=== PATIENT | female | born 1955 | race African-American/Black ===

== ENCOUNTER 2017-11-28 08:03 | Inpatient (IN) | payer MEDICARE, MEDICAID ==
[~2017-11-28] VITALS: Ht 152.4 cm; Wt 112.3 kg
[~2017-11-28 08:03] MED LIST: AMIT25TA9 PO; CITA40TA11; CITA40TA11 PO; CODE118S2 PO; COR3 PO; DIGO125T82; GABA-529; MONT10TA24 PO; POTA25PA2; PRED10TA; SIMV20TA6 PO; WARF2TAB57
[2017-11-28] MEDS ORDERED: IPRATROPIUM/ALBUTEROL 0.5-3(2.5)MG/3ML NEB HHN ONE ×2 (08:30→11:15)
[2017-11-28] MEDS ORDERED: METHYLPREDNISOLONE SOD SUCC 125 MG/2 ML VIAL IV ONE (08:30)
[2017-11-28 08:53] LABS: EOSINOPHILS % 6.6 % (0.0-5.0); HEMATOCRIT. 40.1 % (36.0-48.0); HEMOGLOBIN. 13.2 g/dL (12.0-16.0); LYMPHOCYTES % 44.6 % (20.0-50.0); MEAN CORPUSCULAR HEMOGLOBIN 29.3 pg (28.0-32.0); MEAN CORPUSCULAR VOLUME 88.9 fL (81.0-99.0); MEAN PLATELET VOLUME 9.1 fl (7.4-10.4); MONOCYTES % 8.2 % (2.0-8.0); NEUTROPHILS % 39.6 % (40.0-76.0); PLATELET 182 x1000/uL (130-400); RED BLOOD CELL COUNT 4.52 mill/uL (4.2-5.4)
[2017-11-28 09:02] LABS: CHLORIDE 109 mEq/L (98-107)
[2017-11-28 09:21] LABS: INR 1.7; PROTHROMBIN TIME 18.2 sec (9.4-11.6)
[2017-11-28 09:28] LABS: DIGOXIN 0.5 ng/mL (0.9-2.0)
[2017-11-28] MEDS ORDERED: MORPHINE SULFATE 4 MG/ML CPJ (NOT FOR IM USE) IV ONE (09:30)
[2017-11-28] MEDS ORDERED: FUROSEMIDE 40MG/4ML VIAL IVP ONE (11:15)
[2017-11-28] MEDS ORDERED: DIGOXIN 500MCG/2ML AMP IV NR (12:25)
[2017-11-28 15:38] VITALS: BP 124/50
[2017-11-28] MEDS ORDERED: HYDROCODONE/ACETAMINOPHEN 10/325MG TABLET PO PRN ×2 (15:45→18:15)
[2017-11-28] MEDS ORDERED: IPRATROPIUM/ALBUTEROL 0.5-3(2.5)MG/3ML NEB HHN PRN (15:45)
[2017-11-28 16:00] VITALS: BP 124/50
[2017-11-28] MEDS ORDERED: CLONIDINE 0.2MG TABLET PO PRN (16:00)
[2017-11-28] MEDS ORDERED: CLONIDINE 0.1MG TABLET PO PRN (16:00)
[2017-11-28] MEDS ORDERED: MONTELUKAST SODIUM 10MG TABLET PO SCH ×2 (17:00→18:15)
[2017-11-28] MEDS: FUROSEMIDE 40MG/4ML VIAL IVP SCH (18:05)
[2017-11-28] MEDS: LOSARTAN POTASSIUM 25 MG TABLET PO SCH (18:06)
[2017-11-28] MEDS ORDERED: ACETAMINOPHEN 325MG TABLET PO PRN (18:15)
[2017-11-28] MEDS ORDERED: ACETAMINOPHEN 650MG SUPP PR PRN (18:15)
[2017-11-28] MEDS ORDERED: ACETAMINOPHEN 650MG/20.3ML UDC PO PRN (18:15)
[2017-11-28] MEDS ORDERED: NITROGLYCERIN 0.4MG TABLET SL SL PRN (18:15)
[2017-11-28] MEDS ORDERED: ONDANSETRON HCL 4MG/2ML VIAL IV PRN (18:15)
[2017-11-28] MEDS ORDERED: HYDROCODONE/ACETAMINOPHEN 5/325MG TABLET PO PRN (18:15)
[2017-11-28] MEDS: PANTOPRAZOLE 40MG DR TABLET PO SCH (18:25)
[2017-11-28] MEDS: GABAPENTIN 300MG CAPSULE PO SCH (18:25)
[2017-11-28] MEDS ORDERED: BENZONATATE 100MG CAPSULE PO PRN (18:30)
[2017-11-28] MEDS: NICOTINE 7MG PATCH TD SCH (19:00)
[2017-11-28] MEDS: AMITRIPTYLINE 25MG TABLET PO SCH (20:30)
[2017-11-28 20:33] VITALS: BP 110/54
[2017-11-28] MEDS: BUDESONIDE 0.5MG/2ML NEB HHN SCH (21:41)
[2017-11-28] MEDS: IPRATROPIUM/ALBUTEROL 0.5-3(2.5)MG/3ML NEB HHN SCH (21:41)
[2017-11-29] VITALS (8 sets, daily range): BP systolic 96–120; BP diastolic 39–60
[2017-11-29] MEDS: MORPHINE SULFATE 4 MG/ML CPJ (NOT FOR IM USE) IV PRN ×4 (00:52→22:42)
[2017-11-29] MEDS: IPRATROPIUM/ALBUTEROL 0.5-3(2.5)MG/3ML NEB HHN SCH ×3 (01:00→20:51)
[2017-11-29] MEDS: FUROSEMIDE 40MG/4ML VIAL IVP SCH ×2 (06:15→18:19)
[2017-11-29 06:23] LABS: D-DIMER < 0.19 mg/L FEU (<0.50); INR 1.8; PROTHROMBIN TIME 18.4 sec (9.4-11.6)
[2017-11-29 06:33] LABS: BASOPHILS % 0.4 % (0.0-2.0); EOSINOPHILS % 0.2 % (0.0-5.0); HEMATOCRIT. 41.7 % (36.0-48.0); HEMOGLOBIN. 13.8 g/dL (12.0-16.0); LYMPHOCYTES % 19.2 % (20.0-50.0); MEAN CORPUSCULAR HEMOGLOBIN 29.3 pg (28.0-32.0); MEAN CORPUSCULAR VOLUME 88.6 fL (81.0-99.0); MONOCYTES % 8.9 % (2.0-8.0); NEUTROPHILS % 71.3 % (40.0-76.0); PLATELET 198 x1000/uL (130-400); RED BLOOD CELL COUNT 4.71 mill/uL (4.2-5.4); RED CELL DISTRIBUTION WIDTH 13.9 % (11.6-14.6)
[2017-11-29 06:46] LABS: CLARITY URINE CLEAR (CLEAR); COLOR URINE YELLOW (YELLOW); KETONES URINE NEGATIVE (NEGATIVE); LEUKOCYTE ESTERASE URINE NEGATIVE (NEGATIVE); NITRITE URINE NEGATIVE (NEGATIVE); OCCULT BLOOD URINE NEGATIVE (NEGATIVE); PROTEIN URINE NEGATIVE (NEGATIVE); SPECIFIC GRAVITY URINE 1.025 (1.005-1.030); UROBILINOGEN URINE 0.2 E.U./dL (0.2-1.0)
[2017-11-29 06:56] LABS: *AMPHETAMINES SCREEN URINE NEGATIVE (NEGATIVE); *BARBITURATES SCREEN URINE NEGATIVE (NEGATIVE); *BENZODIAZEPINES SCREEN URINE NEGATIVE (NEGATIVE); *COCAINE SCREEN URINE NEGATIVE (NEGATIVE)
[2017-11-29 06:58] LABS: CANNABINOID URINE SCREEN NEGATIVE (NEGATIVE); METHADONE URINE SCREEN NEGATIVE (NEGATIVE); OPIATES URINE SCREEN PRESUMTIVE POSITIVE (NEGATIVE); PHENCYCLIDINE URINE SCREEN NEGATIVE (NEGATIVE)
[2017-11-29] MEDS: BUDESONIDE 0.5MG/2ML NEB HHN SCH ×2 (07:36→20:51)
[2017-11-29] MEDS: PANTOPRAZOLE 40MG DR TABLET PO SCH (08:44)
[2017-11-29] MEDS: GABAPENTIN 300MG CAPSULE PO SCH ×3 (08:44→18:19)
[2017-11-29] MEDS: NICOTINE 7MG PATCH TD SCH (08:44)
[2017-11-29] MEDS: AMITRIPTYLINE 25MG TABLET PO SCH (08:44)
[2017-11-29] MEDS: LOSARTAN POTASSIUM 25 MG TABLET PO SCH ×2 (08:45→17:00)
[2017-11-29 08:47] LABS: CHLORIDE 103 mEq/L (98-107)
[2017-11-29 09:01] LABS: CREATINE KINASE 80 IU/L (26-192); CREATINE KINASE MB FRACTION 1.1 ng/mL (0.5-3.6)
[2017-11-29 09:02] LABS: LDL CHOLESTEROL 102 mg/dL (5-100)
[2017-11-29 09:03] LABS: HDL CHOLESTEROL 56 mg/dL (40-59)
[2017-11-29] MEDS ORDERED: SENNOSIDES/DOCUSATE SOD 8.6/50MG TABLET PO PRN (18:45)
[2017-11-29] MEDS ORDERED: NA PHOS,M-B/NA PHOS,DI-BA ENEMA 118ML PR NR (19:00)
[2017-11-29] MEDS: DOCUSATE SODIUM 250MG CAPSULE PO SCH (21:26)
[2017-11-29] MEDS: ENOXAPARIN 40MG/0.4ML SYR SUBCUT SCH (21:34)
[2017-11-30] VITALS: BP 110/60
[2017-11-30] MEDS: IPRATROPIUM/ALBUTEROL 0.5-3(2.5)MG/3ML NEB HHN SCH ×4 (02:10→21:24)
[2017-11-30 07:24] LABS: BASOPHILS % 1.5 % (0.0-2.0); EOSINOPHILS % 4.4 % (0.0-5.0); HEMATOCRIT. 40.8 % (36.0-48.0); HEMOGLOBIN. 13.2 g/dL (12.0-16.0); LYMPHOCYTES % 51.8 % (20.0-50.0); MEAN CORPUSCULAR VOLUME 89.6 fL (81.0-99.0); MEAN PLATELET VOLUME 9.6 fl (7.4-10.4); MONOCYTES % 6.6 % (2.0-8.0); NEUTROPHILS % 35.7 % (40.0-76.0); PLATELET 174 x1000/uL (130-400); RED BLOOD CELL COUNT 4.55 mill/uL (4.2-5.4); RED CELL DISTRIBUTION WIDTH 14.4 % (11.6-14.6)
[2017-11-30 07:47] LABS: CHLORIDE 105 mEq/L (98-107)
[2017-11-30 08:00] VITALS: BP 107/54
[2017-11-30] MEDS: BUDESONIDE 0.5MG/2ML NEB HHN SCH ×2 (08:23→21:24)
[2017-11-30] MEDS: ENOXAPARIN 40MG/0.4ML SYR SUBCUT SCH ×2 (08:44→20:57)
[2017-11-30] MEDS: GABAPENTIN 300MG CAPSULE PO SCH ×3 (08:47→16:51)
[2017-11-30] MEDS: DOCUSATE SODIUM 250MG CAPSULE PO SCH (08:47)
[2017-11-30] MEDS: AMITRIPTYLINE 25MG TABLET PO SCH (08:47)
[2017-11-30] MEDS: LOSARTAN POTASSIUM 25 MG TABLET PO SCH ×2 (08:48→16:52)
[2017-11-30] MEDS: MORPHINE SULFATE 4 MG/ML CPJ (NOT FOR IM USE) IV PRN ×2 (08:51→20:56)
[2017-11-30] MEDS: FUROSEMIDE 40MG/4ML VIAL IVP SCH ×2 (08:58→16:53)
[2017-11-30] MEDS: PANTOPRAZOLE 40MG DR TABLET PO SCH (08:58)
[2017-11-30] MEDS: NICOTINE 7MG PATCH TD SCH (09:00)
[2017-11-30 12:00] VITALS: BP 100/50
[2017-11-30] MEDS ORDERED: PANT40TA4 PO (13:23)
[2017-11-30] MEDS ORDERED: SENN-3 PO (13:23)
[2017-11-30] MEDS ORDERED: BENZ100C86 PO (13:23)
[2017-11-30] MEDS ORDERED: GABA-531 PO (13:23)
[2017-11-30] MEDS ORDERED: LOSA25TA3 PO (13:23)
[2017-11-30] MEDS ORDERED: FURO10VI3 PO (13:23)
[2017-11-30] MEDS ORDERED: NA PHOS,M-B/NA PHOS,DI-BA ENEMA 118ML PR NR (13:30)
[2017-11-30] MEDS ORDERED: DOCUSATE SODIUM SUGAR FREE 100MG/10ML UDC NG SCH (13:30)
[2017-11-30 16:00] VITALS: BP 96/43
[2017-11-30 20:00] VITALS: BP 104/52
[2017-12-01] VITALS: BP 97/45
[2017-12-01] MEDS: MORPHINE SULFATE 4 MG/ML CPJ (NOT FOR IM USE) IV PRN (03:57)
[2017-12-01 04:00] VITALS: BP 105/58
[2017-12-01] MEDS: FUROSEMIDE 40MG/4ML VIAL IVP SCH (06:48)
[2017-12-01 08:00] VITALS: BP 95/53
[2017-12-01] MEDS: LOSARTAN POTASSIUM 25 MG TABLET PO SCH (09:00)
[2017-12-01] MEDS ORDERED: FAMOTIDINE 20MG TABLET PO SCH (09:00)
[2017-12-01] MEDS: NICOTINE 7MG PATCH TD SCH (09:00)
[2017-12-01] MEDS: AMITRIPTYLINE 25MG TABLET PO SCH (09:16)
[2017-12-01] MEDS: GABAPENTIN 300MG CAPSULE PO SCH (09:16)
[2017-12-01] MEDS: ENOXAPARIN 40MG/0.4ML SYR SUBCUT SCH (09:16)
[2017-12-01] MEDS: DOCUSATE SODIUM 250MG CAPSULE PO SCH (09:16)
[2017-12-01] MEDS: BUDESONIDE 0.5MG/2ML NEB HHN SCH (09:23)
[2017-12-01] MEDS: IPRATROPIUM/ALBUTEROL 0.5-3(2.5)MG/3ML NEB HHN SCH (09:23)
[2017-12-01 11:49] VITALS: BP 95/54
[2017-12-01 12:00] VITALS: BP 114/60
[2017-12-01 12:02] VITALS: BP 114/60
== END 2017-12-01 13:10 | DRG 291 ==
LOC: ER 08:45 → 5WST 11:16 → ENRESERV 14:27
PROVIDERS: ADMIT Internal Medicine; ATTEND Internal Medicine
DX: I11.0 Hypertensive heart disease with heart failure (principal); J96.00 Acute respiratory failure, unspecified whether with hypoxia or hypercapnia; J44.1 Chronic obstructive pulmonary disease with (acute) exacerbation; E46 Unspecified protein-calorie malnutrition; J45.901 Unspecified asthma with (acute) exacerbation; Z68.42 Body mass index [BMI] 45.0-49.9, adult; I50.23 Acute on chronic systolic (congestive) heart failure; I42.0 Dilated cardiomyopathy; E11.42 Type 2 diabetes mellitus with diabetic polyneuropathy; E66.9 Obesity, unspecified; E78.00 Pure hypercholesterolemia, unspecified; F17.210 Nicotine dependence, cigarettes, uncomplicated; F32.9 Major depressive disorder, single episode, unspecified; F41.9 Anxiety disorder, unspecified; G89.29 Other chronic pain; M54.5 Low back pain; M47.816 Spondylosis without myelopathy or radiculopathy, lumbar region; I25.10 Atherosclerotic heart disease of native coronary artery without angina pectoris; I44.7 Left bundle-branch block, unspecified; M47.9 Spondylosis, unspecified; Z79.01 Long term (current) use of anticoagulants; Z95.810 Presence of automatic (implantable) cardiac defibrillator; Z79.84 Long term (current) use of oral hypoglycemic drugs; I25.2 Old myocardial infarction; Z99.81 Dependence on supplemental oxygen; Z80.6 Family history of leukemia; Z82.49 Family history of ischemic heart disease and other diseases of the circulatory system; Z86.718 Personal history of other venous thrombosis and embolism; Z79.899 Other long term (current) drug therapy; Z88.8 Allergy status to other drugs, medicaments and biological substances; Z71.6 Tobacco abuse counseling
CPT/HCPCS: 36415; 71045; 72100; 80053; 80061; 80162; 80305; 81003; 82550; 82553; 82962; 83036; 83690; 83735; 83880; 84443; 84484; 85025; 85379; 85610; 85730; 93005; 93306; 93970; 94640; 96374; 96375; 97162; 99285; C1893; J1160; J1650; J1940; J2270; J2930; J7620; J7626

== ENCOUNTER 2021-01-14 09:08 | Inpatient (IN) | payer MEDICARE, OTHER ==
[~2021-01-14] VITALS: Ht 152.4 cm; Wt 112.5 kg
[~2021-01-14 09:08] MED LIST changes: +BENZ100C86 PO; -CITA40TA11; -CITA40TA11 PO; -CODE118S2 PO; -COR3 PO; -DIGO125T82; +FURO10VI3 PO; -GABA-529; +GABA-532 PO; +LOSA25TA3 PO; -MONT10TA24 PO; +PANT40TA51 PO; -POTA25PA2; -PRED10TA; +SENN-3 PO; -SIMV20TA6 PO; -WARF2TAB57
[2021-01-14 10:03] LABS: HEMATOCRIT. 43.4 % (36.0-48.0); HEMOGLOBIN. 14.1 g/dL (12.0-16.0); MEAN CORPUSCULAR HEMOGLOBIN 29.5 pg (28.0-32.0); MEAN CORPUSCULAR VOLUME 90.6 fL (81.0-99.0); MEAN PLATELET VOLUME 9.3 fl (7.4-10.4); PLATELET 151 x1000/uL (130-400); RED BLOOD CELL COUNT 4.78 mill/uL (4.2-5.4); RED CELL DISTRIBUTION WIDTH 14.3 % (11.6-14.6)
[2021-01-14 10:08] LABS: CHLORIDE 109 mEq/L (98-107)
[2021-01-14] MEDS ORDERED: KETOROLAC 30MG/ML VIAL IV ONE (10:30)
[2021-01-14] MEDS ORDERED: AZITHROMYCIN 500 MG in DEXT 5% WATER 250 ML IV ONE (11:30)
[2021-01-14] MEDS ORDERED: CEFTRIAXONE 1 G PREMIX 50 ML IV ONE (11:30)
[2021-01-14 11:38] LABS: NUCLEATED RED BLOOD CELLS 1 /100 WBC; PLATELET ESTIMATE NORMAL
[2021-01-14] MEDS ORDERED: HYDROCODONE/ACETAMINOPHEN 5/325MG TABLET PO PRN (13:00)
[2021-01-14] MEDS ORDERED: MAGNESIUM/ALUMINUM HYDROXIDE/SIMETHICONE 30ML UDC PO PRN (13:00)
[2021-01-14] MEDS ORDERED: IPRATROPIUM/ALBUTEROL 0.5-3(2.5)MG/3ML NEB HHN PRN (13:00)
[2021-01-14] MEDS ORDERED: CLONIDINE 0.1MG TABLET PO PRN (13:00)
[2021-01-14] MEDS: AMITRIPTYLINE 25MG TABLET PO SCH (13:15)
[2021-01-14] MEDS: PANTOPRAZOLE 40MG DR TABLET PO SCH (14:09)
[2021-01-14] MEDS ORDERED: NOREPINEPHRINE 8 MG in DEXT 5% WATER 242 ML IV PRN (15:00)
[2021-01-14] MEDS ORDERED: NALOXONE HCL 0.4MG/ML VIAL IV PRN (15:30)
[2021-01-14] MEDS: GABAPENTIN 300MG CAPSULE PO SCH (18:00)
[2021-01-14] MEDS: FUROSEMIDE 40MG/4ML VIAL IV SCH (18:00)
[2021-01-14] MEDS: IPRATROPIUM/ALBUTEROL 0.5-3(2.5)MG/3ML NEB HHN SCH (20:17)
[2021-01-14] MEDS: ENOXAPARIN 40MG/0.4ML SYR SUBCUT SCH (20:50)
[2021-01-15] MEDS: IPRATROPIUM/ALBUTEROL 0.5-3(2.5)MG/3ML NEB HHN SCH ×2 (02:18→09:25)
[2021-01-15 05:00] VITALS: BP 134/66
[2021-01-15] MEDS: ACETAMINOPHEN 325MG TABLET PO PRN ×2 (05:11→17:02)
[2021-01-15] MEDS ORDERED: GABA-529 PO (05:41)
[2021-01-15] MEDS ORDERED: COLC0.6C PO (05:41)
[2021-01-15] MEDS ORDERED: POTA8CAP20 PO (05:41)
[2021-01-15] MEDS ORDERED: PRED10TA PO (05:41)
[2021-01-15] MEDS ORDERED: DIGO125T80 PO (05:41)
[2021-01-15] MEDS ORDERED: SIMV-46 PO (05:41)
[2021-01-15] MEDS ORDERED: FLUT100B IH ×2 (05:41→16:21)
[2021-01-15] MEDS ORDERED: FURO80TA3 PO (05:41)
[2021-01-15] MEDS ORDERED: RIVA20TA PO (05:41)
[2021-01-15] MEDS ORDERED: ALBU6.7H9 IH (05:41)
[2021-01-15] MEDS ORDERED: FLEC100T2 PO (05:41)
[2021-01-15] MEDS ORDERED: CARV3.1242 PO (05:41)
[2021-01-15] MEDS ORDERED: *PATIENT'S OWN MEDICATION STORAGE XX SCH (06:15)
[2021-01-15 07:05] LABS: CLARITY URINE CLEAR (CLEAR); COLOR URINE YELLOW (YELLOW); KETONES URINE NEGATIVE (NEGATIVE); LEUKOCYTE ESTERASE URINE NEGATIVE (NEGATIVE); NITRITE URINE NEGATIVE (NEGATIVE); OCCULT BLOOD URINE TRACE (NEGATIVE); PROTEIN URINE 1+ (NEGATIVE); UROBILINOGEN URINE 0.2 E.U./dL (0.2-1.0)
[2021-01-15 07:43] LABS: *AMPHETAMINES SCREEN URINE NEGATIVE (NEGATIVE); *COCAINE SCREEN URINE NEGATIVE (NEGATIVE); OPIATES URINE SCREEN NEGATIVE (NEGATIVE)
[2021-01-15 07:44] LABS: *BARBITURATES SCREEN URINE NEGATIVE (NEGATIVE); *BENZODIAZEPINES SCREEN URINE NEGATIVE (NEGATIVE); CANNABINOID URINE SCREEN NEGATIVE (NEGATIVE); METHADONE URINE SCREEN NEGATIVE (NEGATIVE); PHENCYCLIDINE URINE SCREEN NEGATIVE (NEGATIVE)
[2021-01-15 08:00] VITALS: BP 107/62
[2021-01-15] MEDS: GABAPENTIN 300MG CAPSULE PO SCH ×3 (09:36→17:07)
[2021-01-15] MEDS: ENOXAPARIN 40MG/0.4ML SYR SUBCUT SCH (09:36)
[2021-01-15] MEDS: PANTOPRAZOLE 40MG DR TABLET PO SCH (09:37)
[2021-01-15] MEDS: AMITRIPTYLINE 25MG TABLET PO SCH (09:37)
[2021-01-15] MEDS: FUROSEMIDE 40MG/4ML VIAL IV SCH ×2 (09:37→17:07)
[2021-01-15] MEDS ORDERED: GABAPENTIN 100MG CAPSULE PO SCH (10:00)
[2021-01-15] MEDS: PREDNISONE 10MG TABLET PO SCH (10:58)
[2021-01-15] MEDS: CEFTRIAXONE 1,000 MG in DEXTROSE 5% WATER 50 ML IV SCH (10:58)
[2021-01-15] MEDS: AZITHROMYCIN 500 MG in DEXT 5% WATER 250 ML IV SCH (11:10)
[2021-01-15 12:00] VITALS: BP 105/65
[2021-01-15] MEDS ORDERED: CEFTRIAXONE 1 G PREMIX 50 ML IV SCH (13:00)
[2021-01-15] MEDS ORDERED: AZITHROMYCIN 500 MG in DEXT 5% WATER 250 ML IV SCH (14:00)
[2021-01-15 16:00] VITALS: BP 104/64
[2021-01-15] MEDS ORDERED: GABA-529 MT (16:21)
[2021-01-15] MEDS ORDERED: ALBU6.7H11 INH (16:21)
[2021-01-15] MEDS ORDERED: TOPUD PO (16:21)
[2021-01-15] MEDS: CARVEDILOL 3.125 MG TABLET PO SCH (17:00)
[2021-01-15] MEDS: RIVAROXABAN 20 MG TABLET PO SCH (17:02)
[2021-01-15] MEDS: DIGOXIN 125MCG TABLET PO SCH (17:07)
[2021-01-15 20:00] VITALS: BP 135/56
[2021-01-15] MEDS: ATORVASTATIN CALCIUM 40MG TABLET PO SCH (20:16)
[2021-01-15 20:47] LABS: BASOPHILS % 0.3 % (0.0-2.0); HEMATOCRIT. 39.2 % (36.0-48.0); HEMOGLOBIN. 12.8 g/dL (12.0-16.0); LYMPHOCYTES % 16.6 % (20.0-50.0); MEAN CORPUSCULAR HEMOGLOBIN 29.2 pg (28.0-32.0); MEAN CORPUSCULAR VOLUME 89.2 fL (81.0-99.0); MEAN PLATELET VOLUME 9.5 fl (7.4-10.4); MONOCYTES % 6.2 % (2.0-8.0); NEUTROPHILS % 76.9 % (40.0-76.0); PLATELET 154 x1000/uL (130-400); RED BLOOD CELL COUNT 4.39 mill/uL (4.2-5.4)
[2021-01-15 21:00] LABS: CHLORIDE 106 mEq/L (98-107)
[2021-01-15 21:07] LABS: LDL CHOLESTEROL 108 mg/dL (5-100)
[2021-01-15 21:09] LABS: HDL CHOLESTEROL 40 mg/dL (40-59)
[2021-01-16] VITALS: BP 118/46
[2021-01-16 04:00] VITALS: BP 129/58
[2021-01-16 06:56] LABS: BASOPHILS % 0.4 % (0.0-2.0); EOSINOPHILS % 0.1 % (0.0-5.0); HEMOGLOBIN. 13.6 g/dL (12.0-16.0); LYMPHOCYTES % 22.9 % (20.0-50.0); MEAN CORPUSCULAR HEMOGLOBIN 29.7 pg (28.0-32.0); MEAN CORPUSCULAR VOLUME 89.3 fL (81.0-99.0); MEAN PLATELET VOLUME 8.9 fl (7.4-10.4); MONOCYTES % 5.6 % (2.0-8.0); PLATELET 161 x1000/uL (130-400); RED CELL DISTRIBUTION WIDTH 13.9 % (11.6-14.6)
[2021-01-16 07:14] LABS: CHLORIDE 104 mEq/L (98-107)
[2021-01-16 08:00] VITALS: BP 142/78
[2021-01-16] MEDS: AMITRIPTYLINE 25MG TABLET PO SCH (09:00)
[2021-01-16] MEDS: GABAPENTIN 300MG CAPSULE PO SCH ×3 (09:00→17:19)
[2021-01-16] MEDS: PANTOPRAZOLE 40MG DR TABLET PO SCH ×2 (09:51→10:12)
[2021-01-16] MEDS: CARVEDILOL 3.125 MG TABLET PO SCH ×2 (09:52→17:19)
[2021-01-16] MEDS: DOCUSATE SODIUM 100MG CAPSULE PO PRN ×2 (09:53→10:12)
[2021-01-16] MEDS: PREDNISONE 10MG TABLET PO SCH (10:19)
[2021-01-16] MEDS: ACETAMINOPHEN 325MG TABLET PO PRN (10:24)
[2021-01-16] MEDS: FUROSEMIDE 40MG/4ML VIAL IV SCH ×2 (10:24→17:19)
[2021-01-16 12:10] VITALS: BP 118/68
[2021-01-16] MEDS: CEFTRIAXONE 1,000 MG in DEXTROSE 5% WATER 50 ML IV SCH (13:15)
[2021-01-16] MEDS: AZITHROMYCIN 500 MG in DEXT 5% WATER 250 ML IV SCH (13:15)
[2021-01-16 16:00] VITALS: BP 126/77
[2021-01-16] MEDS: RIVAROXABAN 20 MG TABLET PO SCH (17:20)
[2021-01-16] MEDS: DIGOXIN 125MCG TABLET PO SCH (17:20)
[2021-01-16 20:00] VITALS: BP 117/74
[2021-01-16] MEDS: ATORVASTATIN CALCIUM 40MG TABLET PO SCH (20:43)
[2021-01-16] MEDS ORDERED: ALBUTEROL 6.7GM HFA INHALER ORI PRN (21:30)
[2021-01-17] VITALS: BP 114/88
[2021-01-17] MEDS: ALBUTEROL 6.7GM HFA INHALER ORI SCH ×4 (00:21→17:45)
[2021-01-17 04:00] VITALS: BP 113/91
[2021-01-17] MEDS: ACETAMINOPHEN 325MG TABLET PO PRN ×2 (04:04→15:52)
[2021-01-17 08:05] VITALS: BP 110/50
[2021-01-17] MEDS: GABAPENTIN 300MG CAPSULE PO SCH ×3 (08:41→17:44)
[2021-01-17] MEDS: FUROSEMIDE 40MG/4ML VIAL IV SCH ×2 (08:41→17:43)
[2021-01-17] MEDS: CARVEDILOL 3.125 MG TABLET PO SCH ×2 (08:41→17:44)
[2021-01-17] MEDS: DOCUSATE SODIUM 100MG CAPSULE PO PRN (08:41)
[2021-01-17] MEDS: FAMOTIDINE 20MG TABLET PO SCH (08:42)
[2021-01-17] MEDS: CEFTRIAXONE 1,000 MG in DEXTROSE 5% WATER 50 ML IV SCH (08:42)
[2021-01-17] MEDS: PREDNISONE 10MG TABLET PO SCH (08:42)
[2021-01-17] MEDS: AMITRIPTYLINE 25MG TABLET PO SCH (09:00)
[2021-01-17 12:00] VITALS: BP 123/59
[2021-01-17] MEDS: AZITHROMYCIN 500 MG in DEXT 5% WATER 250 ML IV SCH (13:15)
[2021-01-17 16:00] VITALS: BP 124/64
[2021-01-17] MEDS: DIGOXIN 125MCG TABLET PO SCH (17:44)
[2021-01-17] MEDS: RIVAROXABAN 20 MG TABLET PO SCH (17:44)
[2021-01-17 20:00] VITALS: BP 105/67
[2021-01-17] MEDS: ATORVASTATIN CALCIUM 40MG TABLET PO SCH (20:28)
[2021-01-18] VITALS: BP 121/55
[2021-01-18] MEDS: ALBUTEROL 6.7GM HFA INHALER ORI SCH ×4 (00:34→18:03)
[2021-01-18] MEDS: ACETAMINOPHEN 325MG TABLET PO PRN ×2 (02:14→12:33)
[2021-01-18 04:00] VITALS: BP 109/52
[2021-01-18 08:00] VITALS: BP 121/52
[2021-01-18] MEDS: FAMOTIDINE 20MG TABLET PO SCH (09:16)
[2021-01-18] MEDS: CARVEDILOL 3.125 MG TABLET PO SCH ×2 (09:16→18:02)
[2021-01-18] MEDS: PREDNISONE 10MG TABLET PO SCH (09:16)
[2021-01-18] MEDS: DOCUSATE SODIUM 100MG CAPSULE PO PRN ×2 (09:16→17:57)
[2021-01-18] MEDS: FUROSEMIDE 40MG/4ML VIAL IV SCH ×2 (09:16→18:03)
[2021-01-18] MEDS: CEFTRIAXONE 1,000 MG in DEXTROSE 5% WATER 50 ML IV SCH (09:16)
[2021-01-18] MEDS: GABAPENTIN 300MG CAPSULE PO SCH ×3 (09:21→17:57)
[2021-01-18 12:10] VITALS: BP 128/64
[2021-01-18] MEDS: GUAIFENESIN-DM 200MG-20MG/10ML UDC PO PRN (12:32)
[2021-01-18] MEDS: AZITHROMYCIN 500 MG in DEXT 5% WATER 250 ML IV SCH (12:33)
[2021-01-18] MEDS: DEXAMETHASONE 4MG/ML 1ML VIAL IV SCH (13:41)
[2021-01-18] MEDS ORDERED: LIDOCAINE HCL/PF 1% 2ML VIAL ONE (15:40)
[2021-01-18 16:00] VITALS: BP 136/66
[2021-01-18 16:33] LABS: BG BASE EXCESS 5.1 mmol/L (-2.0-2.0); BG CARBOXYHEMOGLOBIN 0.5 % (0.5-1.5); BG DEOXYHEMOGLOBIN 4.2 % (0.0-5.0); BG FRACTION INSPIRED OXYGEN 32; BG HCO3 ACT 29.8 mmol/L (22.0-26.0); BG METHEMOGLOBIN 0.2 % (0.0-1.5); BG OXYGEN SATURATION 95.8 % (92.0-98.5); BG OXYHEMOGLOBIN 95.1 % (94.0-97.0); BG PCO2 43.8 mmHg (35.0-45.0); BG PO2 75.2 mmHg (75.0-100.0); BG SAMPLE SITE RIGHT RADIAL; BG TOTAL HEMOGLOBIN 13.7 g/dL (12.0-18.0); BG VENT MODE NASAL CANNULA
[2021-01-18] MEDS: DIGOXIN 125MCG TABLET PO SCH (17:58)
[2021-01-18] MEDS: RIVAROXABAN 20 MG TABLET PO SCH (17:58)
[2021-01-18 20:00] VITALS: BP 103/50
[2021-01-18] MEDS: ATORVASTATIN CALCIUM 40MG TABLET PO SCH (20:08)
[2021-01-19] VITALS: BP 108/56
[2021-01-19 04:00] VITALS: BP 130/53
[2021-01-19] MEDS: ALBUTEROL 6.7GM HFA INHALER ORI SCH ×4 (06:00→17:04)
[2021-01-19] MEDS: GUAIFENESIN-DM 200MG-20MG/10ML UDC PO PRN ×2 (06:13→08:50)
[2021-01-19 08:00] VITALS: BP 126/65
[2021-01-19] MEDS: FUROSEMIDE 40MG/4ML VIAL IV SCH ×2 (08:51→16:17)
[2021-01-19] MEDS: DEXAMETHASONE 4MG/ML 1ML VIAL IV SCH (08:51)
[2021-01-19] MEDS: CEFTRIAXONE 1,000 MG in DEXTROSE 5% WATER 50 ML IV SCH (08:51)
[2021-01-19] MEDS: FAMOTIDINE 20MG TABLET PO SCH (08:52)
[2021-01-19] MEDS: CARVEDILOL 3.125 MG TABLET PO SCH ×2 (08:52→16:17)
[2021-01-19] MEDS: GABAPENTIN 300MG CAPSULE PO SCH ×3 (09:02→16:17)
[2021-01-19] MEDS ORDERED: LOPERAMIDE HCL 2MG CAPSULE PO PRN (11:15)
[2021-01-19 12:00] VITALS: BP 122/64
[2021-01-19 16:00] VITALS: BP 92/45
[2021-01-19] MEDS: RIVAROXABAN 20 MG TABLET PO SCH (16:17)
[2021-01-19] MEDS: DIGOXIN 125MCG TABLET PO SCH (17:04)
[2021-01-19 20:00] VITALS: BP 121/68
[2021-01-19] MEDS: ATORVASTATIN CALCIUM 40MG TABLET PO SCH (20:31)
[2021-01-20] VITALS: BP 98/49
[2021-01-20] MEDS: ALBUTEROL 6.7GM HFA INHALER ORI SCH ×5 (00:14→22:39)
[2021-01-20 04:00] VITALS: BP 143/61
[2021-01-20 06:05] LABS: BASOPHILS % 0.4 % (0.0-2.0); CHLORIDE 100 mEq/L (98-107); HEMATOCRIT. 40.4 % (36.0-48.0); HEMOGLOBIN. 13.4 g/dL (12.0-16.0); LYMPHOCYTES % 22.7 % (20.0-50.0); MEAN CORPUSCULAR HEMOGLOBIN 29.5 pg (28.0-32.0); MEAN CORPUSCULAR VOLUME 88.9 fL (81.0-99.0); MEAN PLATELET VOLUME 8.5 fl (7.4-10.4); MONOCYTES % 10.3 % (2.0-8.0); NEUTROPHILS % 66.6 % (40.0-76.0); PLATELET 279 x1000/uL (130-400); RED BLOOD CELL COUNT 4.55 mill/uL (4.2-5.4); RED CELL DISTRIBUTION WIDTH 13.6 % (11.6-14.6)
[2021-01-20 08:00] VITALS: BP 126/64
[2021-01-20] MEDS: CARVEDILOL 3.125 MG TABLET PO SCH ×2 (08:19→16:32)
[2021-01-20] MEDS: GUAIFENESIN-DM 200MG-20MG/10ML UDC PO PRN (08:19)
[2021-01-20] MEDS: FUROSEMIDE 40MG/4ML VIAL IV SCH ×2 (08:19→16:31)
[2021-01-20] MEDS: DEXAMETHASONE 4MG/ML 1ML VIAL IV SCH (08:19)
[2021-01-20] MEDS: GABAPENTIN 300MG CAPSULE PO SCH ×3 (08:19→16:31)
[2021-01-20] MEDS: FAMOTIDINE 20MG TABLET PO SCH (08:19)
[2021-01-20] MEDS: ACETAMINOPHEN 325MG TABLET PO PRN (11:18)
[2021-01-20 12:00] VITALS: BP 114/56
[2021-01-20] MEDS: BENZONATATE 100MG CAPSULE PO SCH ×2 (13:43→22:35)
[2021-01-20 16:00] VITALS: BP 115/58
[2021-01-20] MEDS: RIVAROXABAN 20 MG TABLET PO SCH (16:32)
[2021-01-20] MEDS: DIGOXIN 125MCG TABLET PO SCH (17:10)
[2021-01-20 20:00] VITALS: BP 120/53
[2021-01-20] MEDS: ATORVASTATIN CALCIUM 40MG TABLET PO SCH (22:35)
[2021-01-21 00:31] VITALS: BP 106/48
[2021-01-21 04:00] VITALS: BP 113/47
[2021-01-21] MEDS: BENZONATATE 100MG CAPSULE PO SCH ×3 (05:00→21:14)
[2021-01-21] MEDS: ALBUTEROL 6.7GM HFA INHALER ORI SCH ×4 (05:01→23:50)
[2021-01-21 06:38] LABS: BASOPHILS % 0.2 % (0.0-2.0); EOSINOPHILS % 0.1 % (0.0-5.0); HEMATOCRIT. 38.1 % (36.0-48.0); HEMOGLOBIN. 12.9 g/dL (12.0-16.0); LYMPHOCYTES % 28.5 % (20.0-50.0); MEAN CORPUSCULAR HEMOGLOBIN 29.8 pg (28.0-32.0); MEAN CORPUSCULAR VOLUME 87.8 fL (81.0-99.0); MEAN PLATELET VOLUME 8.5 fl (7.4-10.4); MONOCYTES % 10.5 % (2.0-8.0); NEUTROPHILS % 60.7 % (40.0-76.0); PLATELET 295 x1000/uL (130-400); RED BLOOD CELL COUNT 4.34 mill/uL (4.2-5.4); RED CELL DISTRIBUTION WIDTH 13.6 % (11.6-14.6)
[2021-01-21] MEDS: ACETAMINOPHEN 325MG TABLET PO PRN (06:46)
[2021-01-21 06:56] LABS: CHLORIDE 100 mEq/L (98-107)
[2021-01-21] MEDS: DOCUSATE SODIUM 100MG CAPSULE PO PRN (07:11)
[2021-01-21] MEDS: ONDANSETRON HCL 4MG/2ML INJ IV PRN (07:11)
[2021-01-21 08:00] VITALS: BP 115/66
[2021-01-21] MEDS: GABAPENTIN 300MG CAPSULE PO SCH ×3 (09:15→17:03)
[2021-01-21] MEDS: FAMOTIDINE 20MG TABLET PO SCH (09:16)
[2021-01-21] MEDS: DEXAMETHASONE 4MG/ML 1ML VIAL IV SCH (09:16)
[2021-01-21] MEDS: FUROSEMIDE 40MG/4ML VIAL IV SCH ×2 (09:16→17:03)
[2021-01-21] MEDS: CARVEDILOL 3.125 MG TABLET PO SCH ×2 (09:16→17:03)
[2021-01-21] MEDS: GUAIFENESIN-DM 200MG-20MG/10ML UDC PO PRN (11:38)
[2021-01-21 11:52] VITALS: BP 117/52
[2021-01-21 15:51] VITALS: BP 111/64
[2021-01-21] MEDS: DIGOXIN 125MCG TABLET PO SCH (17:03)
[2021-01-21] MEDS: RIVAROXABAN 20 MG TABLET PO SCH (17:03)
[2021-01-21 20:00] VITALS: BP 91/54
[2021-01-21] MEDS: ATORVASTATIN CALCIUM 40MG TABLET PO SCH (21:14)
[2021-01-22] VITALS: BP 91/58
[2021-01-22 04:00] VITALS: BP 105/56
[2021-01-22] MEDS: ALBUTEROL 6.7GM HFA INHALER ORI SCH ×3 (05:43→17:30)
[2021-01-22] MEDS: BENZONATATE 100MG CAPSULE PO SCH ×3 (05:43→20:50)
[2021-01-22 07:24] LABS: BASOPHILS % 0.2 % (0.0-2.0); EOSINOPHILS % 0.4 % (0.0-5.0); HEMATOCRIT. 40.4 % (36.0-48.0); HEMOGLOBIN. 13.5 g/dL (12.0-16.0); LYMPHOCYTES % 24.7 % (20.0-50.0); MEAN CORPUSCULAR HEMOGLOBIN 29.5 pg (28.0-32.0); MEAN PLATELET VOLUME 8.4 fl (7.4-10.4); MONOCYTES % 10.1 % (2.0-8.0); NEUTROPHILS % 64.6 % (40.0-76.0); PLATELET 313 x1000/uL (130-400); RED BLOOD CELL COUNT 4.59 mill/uL (4.2-5.4); RED CELL DISTRIBUTION WIDTH 13.7 % (11.6-14.6)
[2021-01-22 07:43] LABS: CHLORIDE 99 mEq/L (98-107)
[2021-01-22 08:00] VITALS: BP 143/53
[2021-01-22] MEDS: CARVEDILOL 3.125 MG TABLET PO SCH ×2 (08:47→17:30)
[2021-01-22] MEDS: DOCUSATE SODIUM 100MG CAPSULE PO PRN (08:47)
[2021-01-22] MEDS: FAMOTIDINE 20MG TABLET PO SCH (08:47)
[2021-01-22] MEDS: ONDANSETRON HCL 4MG/2ML INJ IV PRN (08:48)
[2021-01-22] MEDS: FUROSEMIDE 40MG/4ML VIAL IV SCH ×2 (08:48→17:31)
[2021-01-22] MEDS: GUAIFENESIN-DM 200MG-20MG/10ML UDC PO PRN (08:48)
[2021-01-22] MEDS: ACETAMINOPHEN 325MG TABLET PO PRN (08:48)
[2021-01-22] MEDS: DEXAMETHASONE 4MG/ML 1ML VIAL IV SCH (08:48)
[2021-01-22] MEDS: GABAPENTIN 300MG CAPSULE PO SCH ×3 (08:50→17:31)
[2021-01-22 12:00] VITALS: BP 124/62
[2021-01-22 16:00] VITALS: BP 115/58
[2021-01-22] MEDS: RIVAROXABAN 20 MG TABLET PO SCH (17:31)
[2021-01-22] MEDS: DIGOXIN 125MCG TABLET PO SCH (17:31)
[2021-01-22 20:00] VITALS: BP 112/64
[2021-01-22] MEDS: ATORVASTATIN CALCIUM 40MG TABLET PO SCH (20:50)
[2021-01-23] VITALS: BP 121/45
[2021-01-23 04:00] VITALS: BP 127/60
[2021-01-23] MEDS: ALBUTEROL 6.7GM HFA INHALER ORI SCH ×3 (05:48→13:17)
[2021-01-23] MEDS: BENZONATATE 100MG CAPSULE PO SCH ×2 (05:54→13:17)
[2021-01-23 08:00] VITALS: BP 130/65
[2021-01-23] MEDS: DEXAMETHASONE 4MG/ML 1ML VIAL IV SCH (09:11)
[2021-01-23] MEDS: GUAIFENESIN-DM 200MG-20MG/10ML UDC PO PRN (09:11)
[2021-01-23] MEDS: CARVEDILOL 3.125 MG TABLET PO SCH (09:12)
[2021-01-23] MEDS: GABAPENTIN 300MG CAPSULE PO SCH ×2 (09:12→13:17)
[2021-01-23] MEDS: ACETAMINOPHEN 325MG TABLET PO PRN (09:12)
[2021-01-23] MEDS: FAMOTIDINE 20MG TABLET PO SCH (09:12)
[2021-01-23] MEDS: FUROSEMIDE 40MG/4ML VIAL IV SCH (09:12)
[2021-01-23 12:00] VITALS: BP 112/74
[2021-01-23 12:47] VITALS: BP 12/79
== END 2021-01-23 14:33 | disposition home health service (06) | DRG 871 ==
LOC: ER 09:08 → MICUSO 11:23 → EDBEDREQTM 11:37 → EDBEDREQ 11:37 → EDBEDREQSVC 11:37 → 3WST 15:19 → MICUSO 15:45 → 6WST 01-15 03:29 → 7WST 01-15 13:42
PROVIDERS: ADMIT Hospitalist; ATTEND Hospitalist
PROC: 05HY33Z Insertion of Infusion Device into Upper Vein, Percutaneous Approach (ICD-10-PCS; principal; 2021-01-17)
PROC: B54MZZA Ultrasonography of Right Upper Extremity Veins, Guidance (ICD-10-PCS; 2021-01-17)
DX: A41.89 Other specified sepsis (principal); U07.1 COVID-19; I50.23 Acute on chronic systolic (congestive) heart failure; J12.82 Pneumonia due to coronavirus disease 2019; J96.21 Acute and chronic respiratory failure with hypoxia; E44.1 Mild protein-calorie malnutrition; J44.0 Chronic obstructive pulmonary disease with (acute) lower respiratory infection; N17.9 Acute kidney failure, unspecified; I43 Cardiomyopathy in diseases classified elsewhere; Z68.42 Body mass index [BMI] 45.0-49.9, adult; D68.59 Other primary thrombophilia; E66.01 Morbid (severe) obesity due to excess calories; I11.0 Hypertensive heart disease with heart failure; E78.00 Pure hypercholesterolemia, unspecified; I95.9 Hypotension, unspecified; E11.42 Type 2 diabetes mellitus with diabetic polyneuropathy; E78.5 Hyperlipidemia, unspecified; F32.9 Major depressive disorder, single episode, unspecified; F41.9 Anxiety disorder, unspecified; I25.10 Atherosclerotic heart disease of native coronary artery without angina pectoris; Z87.891 Personal history of nicotine dependence; Z95.810 Presence of automatic (implantable) cardiac defibrillator; Z86.718 Personal history of other venous thrombosis and embolism; Z78.9 Other specified health status; Z79.01 Long term (current) use of anticoagulants; Z79.899 Other long term (current) drug therapy; Z71.3 Dietary counseling and surveillance
CPT/HCPCS: 36415; 36600; 71045; 76937; 80048; 80053; 80061; 80162; 80305; 81003; 82375; 82805; 83605; 83880; 84484; 85025; 87426; 93005; 93970; 99285; C1725; C1769; C1893; J0456; J0696; J1100; J1650; J1885; J1940; J2405; J3490; J7060; J7512; U0003; U0005